=== PATIENT | female | born 1950 | race Caucasian/White ===

== ENCOUNTER 2016-03-02 11:47 | Emergency (ER) | payer OTHER ==
[2016-03-02] MEDS ORDERED: KETOROLAC TROMETHAMINE 60 MG/2 ML VIAL ONE (13:03)
[2016-03-02] MEDS ORDERED: DEXAMETHASONE SOD PHOS 10 MG/1 ML VIAL ONE (13:03)
--- NOTE | 2016-03-02 13:46 | CT ---
Indications: Left C7 radicular pain. No known injury Comparisons: CT cervical spine 11/08/2015 Technique: Contiguous axial 2 mm images of the cervical spine are obtained without IV contrast. Sagittal and coronal reformations are also obtained at this time. CT DI: 8.9 DLP: 164.9 Findings: Alignment: Normal Prevertebral Soft Tissue Swelling: None Bones: No fracture or dislocation Degenerative Changes: Multilevel degenerative changes are again identified with facet disease and uncovertebral joint disease. Endplate hypertrophy is also noted. Neural foramina are widely patent. Regional Soft tissues and Lung Apices: Nodular densities at the right apex are again noted as seen on prior examination. Impression: No fracture or dislocation. Degenerative changes as above. Neural foramina are widely patent. Evaluation of the thecal contents is limited given the inherent spatial and contrast resolution limitations of CT. MRI would be recommended if there is further clinical concern for nerve root compromise on the basis of soft disc material. Pulmonary nodules as noted on prior study. Follow-up per Fleischner Society criteria. Report was uploaded to the electronic medical record at approximately 1342 hours on 03/02/2016.
== END 2016-03-02 14:33 | disposition home or self-care (01) ==
LOC: ED 11:47
DX: M54.12 Radiculopathy, cervical region (principal); R20.9 Unspecified disturbances of skin sensation; M25.512 Pain in left shoulder; F17.210 Nicotine dependence, cigarettes, uncomplicated
CPT/HCPCS: 72125; 99283 ×2; 96372; J1100; J1885